=== PATIENT | male | born 1995 | race Caucasian/White ===

== ENCOUNTER 2018-02-13 10:56 | Emergency (ER) | payer OTHER ==
[2018-02-13 11:05] VITALS: BP 119/70
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
[2018-02-13] MEDS ORDERED: IBUPROFEN 600 MG TABLET PO ONE (11:26)
== END 2018-02-13 11:37 | disposition home or self-care (01) ==
LOC: ER 10:56
DX: S50.12XA Contusion of left forearm, initial encounter (principal); R51 Headache; V49.9XXA Car occupant (driver) (passenger) injured in unspecified traffic accident, initial encounter; W22.11XA Striking against or struck by driver side automobile airbag, initial encounter
CPT/HCPCS: 99283